=== PATIENT | female | born 1990 | race American Indian/Alaskan Native ===

== ENCOUNTER 2016-05-23 15:06 | Emergency (ER) | payer SELFPAY ==
[2016-05-23 15:44] VITALS: BP 140/101
[2016-05-23] MEDS ORDERED: TYLENOL PO ONE (15:59)
--- NOTE | 2016-05-23 15:59 | Emergency Department Report ---
Chief Complaint: Chest Pain Stated Complaint: CP/DIZZINESS/FEVER/CHEST TIGHTNESS Time Seen by Provider: 05/23/16 15:54 - HPI History of Present Illness: 26-year-old -[place] female with a past medical history of hypertension and anemia that's noncompliant on medication comes in today for chest pain shortness of breathing nausea chills and dizziness. She reports that this started this morning. Patient admits to nausea no vomiting or diarrhea. - Exam Vital Signs: Vital Signs 05/23/16 15:40 Temperature 98.3 F Pulse Rate 94 H Respiratory 20 Rate Blood Pressure 140/101 O2 Sat by Pulse 100 Oximetry Physical Exam: Patient is alert and oriented. Tearful in exam room. Neurovascular tachycardic respiratory clear to auscultation bilaterally abdomen soft nontender nondistended bowel sounds throughout. MSE screening note: Focused history and physical exam performed. Due to findings the following was ordered: Chest pain. protocol in place. He should be evaluated Main ER. Tylenol 975 mg by mouth given to patient. ED Disposition for MSE Condition: Stable
[2016-05-23 17:47] LABS: Basophils % (Auto) 0.3 % (0.0-1.8); Eosinophils % (Auto) 0.1 % (0.0-4.3); Hematocrit 39.2 % (30.3-42.9); Hemoglobin 12.8 gm/dl (10.1-14.3); Mean Corpuscular HGB Conc 33 % (30-34); Mean Corpuscular Hemoglobin 26 pg (28-32); Mean Corpuscular Volume 81 fl (79-97); Platelet Count 153 K/mm3 (140-440); Red Blood Count 4.85 M/mm3 (3.65-5.03); Red Cell Distribution Width 13.8 % (13.2-15.2); White Blood Count 6.9 K/mm3 (4.5-11.0)
[2016-05-23 17:59] LABS: Anion Gap 18 mmol/L; Blood Urea Nitrogen 10 mg/dL (7-17); Calcium 9.6 mg/dL (8.4-10.2); Carbon Dioxide 21 mmol/L (22-30); Chloride 100.8 mmol/L (98-107); Glucose 138 mg/dL (65-100); Potassium 4.1 mmol/L (3.6-5.0); Sodium 136 mmol/L (137-145)
[2016-05-23] MEDS ORDERED: MOTRIN PO ONE (20:30)
[2016-05-23] MEDS ORDERED: MOTRIN ONE (20:42)
[2016-05-23 21:34] LABS: Bilirubin,Urine NEG (Negative); Blood,Urine NEG (Negative); Ketones,Urine TR mg/dL (Negative); Leukocyte Esterase,Urine NEG (Negative); Mucus,Urine 3+ /HPF; Nitrite,Urine NEG (Negative)
--- NOTE | 2016-05-25 19:20 | ED Elopement Review ---
ED Pt Elopement review - Results review Lab results: Laboratory Tests 05/23/16 05/23/16 05/23/16 17:00 17:00 Unknown WBC 6.9 RBC 4.85 Hgb 12.8 Hct 39.2 MCV 81 MCH 26 L MCHC 33 RDW 13.8 Plt Count 153 Lymph % (Auto) 44.1 H Hinds % (Auto) 4.9 Eos % (Auto) 0.1 Baso % (Auto) 0.3 Lymph # 3.0 Hinds # 0.3 Eos # 0.0 Baso # 0.0 Seg Neutrophils % 50.6 Seg Neutrophils # 3.5 Sodium 136 L Potassium 4.1 Chloride 100.8 Carbon Dioxide 21 L Anion Gap 18 BUN 10 Creatinine 0.4 L Estimated GFR > 60 BUN/Creatinine Ratio 25.00 Glucose 138 H Calcium 9.6 Troponin T < 0.010 Urine Color Zaida Urine Turbidity Slightly-cloudy Urine pH 5.0 Urine Protein 30 mg/dl Urine Glucose (UA) Neg Urine Ketones Tr Urine Blood Neg Urine Nitrite Neg Urine Bilirubin Neg Urine Urobilinogen 2.0 Ur Leukocyte Esterase Neg Urine WBC (Auto) 1.0 Urine RBC (Auto) 3.0 U Epithel Cells (Auto) 31.0 H Urine Mucus 3+ - Call Back decision Pt Call Back Decision: No action required
== END 2016-05-23 23:00 | disposition left against medical advice (07) ==
LOC: ED 15:06
DX: R07.9 Chest pain, unspecified (principal); R06.02 Shortness of breath; R11.0 Nausea; Z53.21 Procedure and treatment not carried out due to patient leaving prior to being seen by health care provider
CPT/HCPCS: 36415; 80048; 81001; 84484; 85025; 93005; 93010